=== PATIENT | male | born 1990 | race Caucasian/White ===

== ENCOUNTER 2017-12-03 00:49 | Emergency (ER) | payer OTHER ==
[2017-12-03 00:55] VITALS: BMI 23.6
[2017-12-03] MEDS ORDERED: ACETAMINOPHEN 500 MG TABLET (FP) PO ONE (01:07)
--- NOTE | 2017-12-03 01:07 | PDOC ---
History of Present Illness - General Chief Complaint: Weakness Stated Complaint: LEFT SIDE WEAKNESS Time Seen by Provider: 12/03/17 00:53 History Source: Patient - History of Present Illness Initial Comments: 12/03/17 01:04 27 year old male with a PMH of subdural hematoma and sciatica BIBA following a fall. At presentation patient has alcohol on breath, states he fell off a bench onto the floor hitting his L arm. Denies any head trauma or LOC. Denies active intoxication at time of fall. VS unremarkable. Past History - Past Medical History Allergies/Adverse Reactions: Allergies Allergy/AdvReac Type Severity Reaction Status Date / Time No Known Allergies Allergy Verified 12/03/17 00:55 Home Medications: Ambulatory Orders Clonazepam [Klonopin] 2 mg PO TID 12/03/17 Dextroamphetamine/Amphetamine [Adderall 10 mg Tablet] 20 mg PO BID 12/03/17 Gabapentin [Neurontin -] 400 mg PO Q8H 12/03/17 Oxycodone HCl 10 mg PO PRN 12/03/17 - Suicide/Smoking/Psychosocial Hx Smoking History: Current every day smoker Have you smoked in the past 12 months: No Information on smoking cessation initiated: No Hx Alcohol Use: Yes Drug/Substance Use Hx: Yes Review of Systems - Review of Systems Constitutional: No: Chills, Fever HEENTM: No: Recent change in vision Respiratory: No: Cough, Shortness of Breath Cardiac (ROS): No: Chest Pain, Lightheadedness, Palpitations, Syncope ABD/GI: No: Constipated, Diarrhea, Nausea, Vomiting : No: Burning, Dysuria *Physical Exam - Vital Signs Last Vital Signs Temp Pulse Resp BP Pulse Ox 100.0 F H 110 H 18 129/74 98 12/03/17 00:53 12/03/17 00:53 12/03/17 00:53 12/03/17 00:53 12/03/17 00:53 - Physical Exam General Appearance: Yes: Nourished, Alcohol on Breath, Thin HEENT: positive: EOMI Neck: positive: Trachea midline, Supple Respiratory/Chest: positive: Lungs Clear Cardiovascular: positive: S1, S2. negative: Edema, JVD Gastrointestinal/Abdominal: positive: Normal Bowel Sounds, Soft Musculoskeletal: negative: CVA Tenderness (R), CVA Tenderness (L) Extremity: positive: Normal Capillary Refill, Other (limited ROM of LUE, 2+ radial pulse, no obvious deformity/laceration/hematoma) Integumentary: positive: Normal Color, Dry, Warm Neurologic: positive: Fully Oriented, Alert, Other ED Treatment Course - LABORATORY CBC & Chemistry Diagram: 12/03/17 01:20 12/03/17 01:20 - RADIOLOGY Radiology Studies Ordered: Category Date Time Status HEAD CT WITHOUT CONTRAST [CT] Stat CT Scan 12/03/17 01:02 Ordered SHOULDER-LEFT [RAD] Stat Radiology 12/03/17 01:02 Ordered Medical Decision Making - Medical Decision Making 12/03/17 01:08 27 year old male presents following an unwitnessed fall from a bench. At presentation patient actively intoxicated. Moving all 4 extremities with limited ROM of LUE. Will obtain CT head/C-spine + L shoulder/humerus XR. Reassess. 12/03/17 02:08 CBC shows WBC 13.3 - source of infection, unknown, possibly reactive. Shoulder, humerus XR negative for acute fracture. CT head/C-spine pending. Patient sleeping. 12/03/17 04:45 CT head/C-spine negative. Patient notes h/o using Oxycodone, Klonopin yesterday evening. Will observe for a few additional hours. 12/03/17 06:26 Patient awake and alert. Patient's mother en route to pick up and delivery driver patient. Will discharge home with PMD follow-up. *DC/Admit/Observation/Transfer Diagnosis at time of Disposition: Fall - Discharge Dispostion Disposition: HOME Condition at time of disposition: Good Admit: No - Referrals Referrals: ON STAFF,NOT [Primary Care Provider] - - Patient Instructions Printed Discharge Instructions: How to Prevent Falls Additional Instructions: Please follow-up with your primary care doctor in the next 24-48 hours. Return to the Emergency Department for any new/worsening/concerning symptoms. - Post Discharge Activity
[2017-12-03] MEDS ORDERED: SODIUM CHLORIDE 0.9% 500 ML INFUS.BAG IV ONE (01:08)
[2017-12-03 01:29] LABS: BASO % 0.3 % (0-2.0); EOS % 0.2 % (0-4.5); HEMATOCRIT 39.9 % (35.4-49); HEMOGLOBIN 13.2 GM/dL (11.7-16.9); LYMPH % 10.2 % (8-40); MCH 29.1 pg (25.7-33.7); MEAN CELL VOLUME 88.3 fl (80-96); MEAN PLT VOLUME 7.8 fl (7.5-11.1); MONO % 9.7 % (3.8-10.2); NEUT % 79.6 % (42.8-82.8); PLATELET COUNT 284 K/MM3 (134-434); RBC 4.52 M/mm3 (4.00-5.60); RDW 14.5 % (11.9-15.9); WHITE BLOOD COUNT 13.3 K/mm3 (4.0-10.0)
[2017-12-03 01:57] LABS: ALBUMIN 4.1 g/dl (3.4-5.0); ALK PHOS 64 U/L (45-117); ANION GAP 10 (8-16); BILIRUBIN,TOTAL 0.3 mg/dL (0.2-1.0); BLOOD UREA NITROGEN 20 mg/dL (7-18); CALCIUM 8.9 mg/dL (8.5-10.1); CHLORIDE 105 mmol/L (98-107); CO2 27 mmol/L (21-32); CREATININE 1.2 mg/dL (0.7-1.3); GLUCOSE,RANDOM 87 mg/dL (74-106); POTASSIUM 3.8 mmol/L (3.5-5.1); SGOT/AST 49 U/L (15-37); SGPT/ALT 28 U/L (12-78); SODIUM 142 mmol/L (136-145)
[2017-12-03] MEDS ORDERED: ACETAMINOPHEN 325 MG TABLET (FP) ONE (02:14)
--- NOTE | 2017-12-03 03:13 | PDOC ---
Attending Attestation - Resident Resident Name: Lanny Brady - ED Attending Attestation I have performed the following: I have examined & evaluated the patient, The case was reviewed & discussed with the resident, I agree w/resident's findings & plan - HPI HPI: 12/03/17 04:44 Pt fell outside of his building. Some kind of intoxication. Pt is sleepy. He is arousable but not able to sustain a clear conversation on arrival. - Physicial Exam PE: 12/03/17 04:45 Agree with resident - Medical Decision Making 12/03/17 03:13 Patient Name: JUNITO JAMESON THIS IS A PRELIMINARY REPORT FROM [facility] DATE OF SERVICE: 2017-12-03 01:26:23 IMAGES: [id number] EXAM: HEAD CT WITHOUT CONTRAST HISTORY: Status post fall COMPARISON: None. FINDINGS: Status post left frontal craniotomy. The ventricular system is midline and nondilated. The sulcal pattern is normal for the patient's age. There is no bleed, mass, extra-axial fluid collection or mass effect. No skull fracture or skull lesion is identified. The visualized paranasal sinuses and mastoid air cells are clear. IMPRESSION: No evidence of acute pathology. 12/03/17 03:49 Patient Name: JUNITO JAMESON THIS IS A PRELIMINARY REPORT FROM [facility] DATE OF SERVICE: 2017-12-03 02:37:03 IMAGES: [id number] EXAM: CERVICAL SPINE CT W/O CONTR HISTORY: Status post fall COMPARISON: None. FINDINGS: There is no fracture, subluxation, prevertebral soft tissue swelling or significant degenerative changes. The lung apices are clear. IMPRESSION: No fracture 12/03/17 04:45 Alcohol level is 0; Pt is more awake at this time and states that he uses oxycodone and mixed it with his antianxiety Klonopin. Pt still slurring his speech and we will let his sleep and watch him for another 2 hrs. 12/03/17 06:14 Pt's mom is coming to get him.
[2017-12-03 07:03] VITALS: BP 125/74; PULSE 79; TEMP 98
== END 2017-12-03 07:03 | disposition home or self-care (01) ==
LOC: JER 00:49 → SUPCPDRO 00:49 → JER 07:03
PROC: 3E0337Z Introduction of Electrolytic and Water Balance Substance into Peripheral Vein, Percutaneous Approach (ICD-10-PCS; principal; 2017-12-03)
DX: W18.39XA Other fall on same level, initial encounter (principal); Y93.89 Activity, other specified; Y92.9 Unspecified place or not applicable; F17.210 Nicotine dependence, cigarettes, uncomplicated
CPT/HCPCS: 36415; 70450-TC; 72125-TC; 73030-TC-LT-FY; 73060-TC-LT-FY; 80053; 80307; 85025; 99283-25

== ENCOUNTER 2024-08-18 04:28 | Day surgery (SDC) | payer OTHER ==
[2024-08-15 15:20] VITALS: BMI 25.5
[2024-08-18] MEDS ORDERED: MIDAZOLAM HCL 2 MG/2 ML SINGLE DOSE VIAL ONE ×2 (09:00→09:01)
[2024-08-18] MEDS ORDERED: PROPOFOL 20 ML ONE (09:04)
[2024-08-18 10:00] VITALS: RESP 16
[2024-08-18] MEDS ORDERED: ACETAMINOPHEN 500 MG TABLET (FP) ONE (10:33)
[2024-08-18] MEDS: ACETAMINOPHEN 500 MG TABLET (FP) PO ONE (10:39)
[2024-08-18 11:13] VITALS: BP 123/68; PULSE 64; TEMP 97.8
== END 2024-08-18 11:15 | disposition home or self-care (01) ==
LOC: JASU-SURG 04:28
PROVIDERS: ATTEND Urology
PROC: 0TF3XZZ Fragmentation in Right Kidney Pelvis, External Approach (ICD-10-PCS; principal; 2024-08-18 12:30)
DX: N20.0 Calculus of kidney (principal)